=== PATIENT | female | born 1990 | race Caucasian/White ===

== ENCOUNTER 2022-11-29 22:00 | Emergency (ER) | payer MEDICARE, MEDICAID ==
[2022-11-29] MEDS ORDERED: Sodium Chloride 0.9% 10 ML Syringe FLUSH PRN (23:09)
[2022-11-29 23:34] LABS: HEMOGLOBIN 16.8 gm/dl (11.2-15.7); MEAN CORPUSCULAR HEMOGLOBIN 30.7 pg (25.6-32.2); MEAN CORPUSCULAR HGB CONC 34.3 g/dl (32.2-35.5); MEAN CORPUSCULAR VOLUME 89.4 fl (79.4-94.8); MEAN PLATELET VOLUME 11.9 fl (9.4-12.3); PLATELET COUNT,PLT 212 K/mm3 (182-369); RED BLOOD CELL COUNT 5.48 M/mm3 (3.98-5.22); WHITE BLOOD CELL COUNT,WBC 13.58 K/mm3 (3.98-10.04)
[2022-11-29 23:55] LABS: INR 1.12; PROTHROMBIN TIME 11.9 SECONDS (9.7-12.0)
[2022-11-29] MEDS ORDERED: Lactated Ringers 500 ML IV ONE (23:59)
[2022-11-30] LABS: ALANINE AMINOTRANSFERASE,ALT 31 U/L (14-59); ALKALINE PHOSPHATASE 74 U/L (46-116); ASPARTATE AMNIOTRANSFERASE,AST 13 U/L (15-37); BILIRUBIN TOTAL 0.5 mg/dL (0.2-1.0); BLOOD UREA NITROGEN,BUN 13 mg/dL (7-18); BUN/CREATININE RATIO 14.4 (14-18); C-REACTIVE PROTEIN 0.7 mg/dL (<1.0); CARBON DIOXIDE,CO2 23 mEq/L (21-32); CHLORIDE,CL 102 mEq/L (98-107); CREATININE 0.9 mg/dL (0.55-1.02); EST CRCL DRUG DOSING (CG) 63.86 mL/min; ESTIMATED GFR 87 mL/min (>60); GLUCOSE RANDOM 108 mg/dL (70-99); PROTEIN TOTAL,TP 8.2 g/dl (6.4-8.2)
[2022-11-30 00:02] LABS: LACTIC ACID 1.3 mmol/L (0.4-2.0)
[2022-11-30 00:20] LABS: SODIUM,NA 136 mEq/L (136-145); TROPONIN I HIGH SENSITIVITY < 4 pg/mL (<=51)
[2022-11-30 00:32] LABS: BAND PERCENT MAN 0 % (0-10); BASOPHILS PERCENT MAN 0 (0.1-1.2); EOSINOPHILS PERCENT MAN 0 % (0.7-5.8); LYMPHOCYTES % ATYPICAL MANUAL 0 %; MONOCYTES PERCENT MAN 2 % (2-10)
[2022-11-30 00:33] LABS: LYMPHOCYTES PERCENT MAN 12 % (20-40); PLATELET COUNT ESTIMATE ADEQUATE
[2022-11-30 01:29] LABS: CORONAVIRUS COVID-19 NAA NEGATIVE (NEGATIVE); INFLUENZA A NAA NEGATIVE (NEGATIVE); RESPIRATORY SYNCYTIAL VIR NAA NEGATIVE (NEGATIVE)
[2022-11-30] MEDS ORDERED: Iopamidol 755 Mg/ML 100 ML Bottle IVPUSH ONE (01:40)
[2022-11-30 02:02] LABS: APPEARANCE,URINE CLEAR (Clear); BILIRUBIN,URINE NEGATIVE (Negative); COLOR,URINE YELLOW (Yellow); GLUCOSE,URINE NEGATIVE (Negative); KETONES,URINE NEGATIVE (Negative); LEUKOCYTE ESTERASE,URINE TRACE (Negative); NITRITE,URINE NEGATIVE (Negative); OCCULT BLOOD,URINE NEGATIVE (Negative); PH,URINE 7.5 (5.0-8.0); PROTEIN,URINE 1+ (Negative)
[2022-11-30 02:25] LABS: AMORPHOUS SEDIMENT,URINE MANY /hpf (NOT SEEN); BACTERIA,URINE MODERATE /hpf (FEW); MUCUS,URINE FEW /hpf (FEW); RBC,URINE 0-5 /hpf (0-5)
== END 2022-11-30 02:40 | disposition home or self-care (01) ==
LOC: JD.ED 22:00
DX: R52 Pain, unspecified (principal); R00.0 Tachycardia, unspecified; Z20.822 Contact with and (suspected) exposure to COVID-19; Z88.0 Allergy status to penicillin; Z88.8 Allergy status to other drugs, medicaments and biological substances
CPT/HCPCS: 0241U; 36415; 71045; 71275; 80053; 81001; 83605; 84484; 85007; 85027; 85379; 85610; 86140; 87040; 93005; 96360; 99284; J3490; J7120; Q9967; 93010